=== PATIENT | female | born 1965 | race Caucasian/White ===

== ENCOUNTER → 2016-12-07 | Outpatient (CLI) | payer BC ==
[~2016-12-07] MED LIST: AMT50 PO; CHOL2000 PO; ENOX60IN SQ; GABA-112 PO; GABA-113 PO; MULT-506 PO; WARF10TA4 PO
== END | disposition home or self-care (01) ==
LOC: C.LABPVFM 09:33
PROVIDERS: ATTEND Nurse Practitioner
DX: N39.0 Urinary tract infection, site not specified (principal)

== ENCOUNTER 2016-12-18 10:56 | Day surgery (SDC) | payer BC, OTHER ==
[2016-12-02 14:41] VITALS: BMI 33.0
--- NOTE | 2016-12-02 15:13 | PAT Medication Instructions ---
Service Date Dec 02, 2016. Current Home Medication List Amitriptyline Hcl (Elavil), 50 MG PO HS Cholecalciferol (Vitamin D3), 1 CAP PO HS Gabapentin (Neurontin), 100 MG PO qam/noon Gabapentin (Neurontin), 300 MG PO HS Multivitamin (Multivitamin), 1 TAB PO QAM Warfarin Sod (Jantoven), 10 MG PO QPM Medication Instructions For Your Scheduled Surgery - Check with surgeon/family doctor for instructions: Warfarin Sod (Jantoven), 10 MG PO QPM - Hold the following medications the morning of surgery: Multivitamin (Multivitamin), 1 TAB PO QAM - Take the following medications the morning of surgery with a sip of water: Gabapentin (Neurontin), 100 MG PO qam/noon - Take the following medications as scheduled the night before surgery: Gabapentin (Neurontin), 300 MG PO HS Cholecalciferol (Vitamin D3), 1 CAP PO HS Amitriptyline Hcl (Elavil), 50 MG PO HS If you have any questions please call us at [phone] (Sara Arrington PA-C) or [phone] or [phone]
[2016-12-02 16:10] LABS: BASO % 0.5 %; BASO ABS # 0.03 K/uL (0-0.2); COMPLETE YES; HEMATOCRIT 42.2 % (37-47); IG% 0.2 %; LYMPH % 34.4 %; LYMPH ABS # 2.29 K/uL (1.2-3.4); MEAN CELL VOLUME 90.2 fL (80-100); MEAN CORPUSCULAR HEMOGLOBIN 31.4 pg (25-34); MEAN CORPUSCULAR HGB CONC 34.8 g/dl (32-36); MONO % 8.9 %; PLATELET COUNT 203 K/uL (130-400); RED BLOOD COUNT 4.68 M/uL (4.2-5.4); WHITE BLOOD COUNT 6.66 K/uL (4.8-10.8)
[2016-12-02 16:23] LABS: INR 3.1 (0.9-1.1); PARTIAL THROMBOPLASTIN RATIO 1.5; PROTHROMBIN TIME (PATIENT) 34.2 SECONDS (9.0-12.0)
[2016-12-02 16:31] LABS: URINE APPEARANCE CLOUDY (CLEAR); URINE BILIRUBIN NEG (NEG); URINE COLOR YELLOW; URINE EPITHELIAL CELL AUTO >30 /lpf (0-5); URINE NITRITE POS (NEG); URINE SPECIFIC GRAVITY 1.015 (1.000-1.030); UROBILINOGEN NEG (NEG)
[2016-12-02 16:31] LABS: BUN/CREATININE RATIO 20.4 (10-20); CALCIUM 10.1 mg/dl (8.5-10.1); CREATININE 0.75 mg/dl (0.60-1.20)
[2016-12-02 16:44] LABS: MANUAL MICROSCOPIC REQUIRED? NO; REVIEW REQ? NO
--- NOTE | 2016-12-08 13:26 | HISTORY & PHYSICAL EXAMINATION ---
DATE OF ADMISSION: 12/18/2016 CHIEF COMPLAINT: Right knee pain. HISTORY OF PRESENT ILLNESS: This is a patient who had an injury to her right knee. She had been treated conservatively; however, she has failed conservative management. She had an MRI done of the right knee which noted a medial meniscus tear as well as a Loera's cyst. She is now being set up for surgical treatment. PAST MEDICAL HISTORY: History of DVT, factor V Leiden mutation, history of pulmonary embolism, ovarian cyst and history of increased fasting glucose. SOCIAL HISTORY: The patient is a smoker. She has an occasional alcoholic drink and she is . PAST SURGICAL HISTORY: History of an ankle surgery, back surgery, cholecystectomy, colposcopy of the cervix with biopsy, history of knee arthroscopy, renal lithotripsy and tonsillectomy. FAMILY HISTORY: Noncontributory. CURRENT MEDICATIONS: Gabapentin 100 mg 1 p.o. at lunchtime and 3 capsules p.o. at bedtime, Coumadin 5 mg as directed, amitriptyline 50 mg 1 p.o. at bedtime, Flonase 50 mcg 1 spray in each nostril b.i.d., multivitamin 1 p.o. daily, vitamin D3 2000 units 1 p.o. daily. ALLERGIES: No known drug allergies. OBJECTIVE PHYSICAL EXAMINATION: GENERAL: The patient is alert and oriented x3. She is in no acute distress. She is a well-dressed, well-nourished 51-year-old female. Her affect is appropriate. CARDIOVASCULAR: Heart has a regular rhythm and rate without murmurs. LUNGS: Clear to auscultation bilateral. Dorsalis pedis, posterior tib pulse +2/4. Cap refill is less than 2 seconds. LYMPHATIC EXAMINATION: No evidence of any swollen lymph nodes. MUSCULOSKELETAL EXAMINATION: The patient has an antalgic gait favoring the right lower extremity. Upon inspection of the right lower extremity, she has swelling of the right knee. There is a mild to moderate effusion noted. With palpation, she has tenderness at the medial joint space as well as over the patella. She has a positive Blaire's test. There is crepitation with passive and active range of motion. There is no laxity with varus or valgus stress or anterior posterior drawer of the right knee. SKIN EXAMINATION: There are no scars, rashes or ulcers noted. NEUROLOGIC EXAMINATION: Sensation normal and intact distally right lower extremity. X-RAY EXAMINATION: MRI of the right knee demonstrates posterior horn medial meniscus tear. There is also a large knee effusion and a small Loera's cyst. 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 ASSESSMENT AND DIAGNOSES: 1. Right knee medial meniscus tear. 2. Loera's cyst right knee. 3. Right knee osteoarthritis. PLAN: Above assessment was discussed with the patient. At this time it was recommended the patient undergo a right knee arthroscopy with partial medial meniscectomy, possible chondroplasty medial femoral condyle and also aspiration Loera's cyst. All potential risks, benefits, complications, alternatives and rehab have been discussed with the patient. At this time, she wishes to proceed with the surgery as indicated. She will be scheduled for the surgery on 12/18/2016.
[~2016-12-18] VITALS: Ht 172.7 cm; Wt 100.2 kg
[~2016-12-18 10:56] MED LIST changes: +ATROPINE SULFATE 0.1 MG/ML 5ML SYR IV PRN; +CEFAZOLIN 2000 MG/60 ML D5W IV SCH; -ENOX60IN SQ; +EpHEDrine SULFATE INJ 50 MG/ML AMP IV PRN; +FENTANYL CITRATE INJ 50 MCG/1 ML 2 ML VIAL IV PRN; +HYDROmorphone INJ 1 MG/ML SYR IV PRN; +LABETALOL HCL IV 5 MG/ML 20ML IV PRN; +LACTATED RINGER'S 1000ML 1,000 ML IV SCH; +MEPERIDINE HCL 25 MG/ML CARP IV PRN; +ONDANSETRON INJ 2 MG/ML 2 ML VIAL IV PRN
--- NOTE | 2016-12-18 11:21 | History & Physical Bridge Note ---
H&P Re-Evaluation Bridge Note: I have examined the patient, reviewed the History & Physical and in the interval since the performance of the History & Physical I have noted the following changes of clinical significance: No changes noted
[2016-12-18] MEDS ORDERED: ENOX60IN SQ (11:29)
[2016-12-18 11:36] VITALS: BP 139/87; PULSE 63; TEMP 36.7; O2SAT 98; Ht 172.7 cm; Wt 100.2 kg
[2016-12-18 12:13] LABS: INR 0.9 (0.9-1.1); PROTHROMBIN TIME (PATIENT) 10.1 SECONDS (9.0-12.0)
[2016-12-18] MEDS ORDERED: LIDOCAINE HCL 2% 2 ML VIAL (20MG/ML) ONE ×2 (12:17→13:54)
[2016-12-18] MEDS ORDERED: DEXAMETHASONE SOD INJ 4 MG/ML VIAL ONE ×2 (12:17→13:54)
[2016-12-18] MEDS ORDERED: FENTANYL CITRATE INJ 50 MCG/1 ML 2 ML VIAL ONE ×6 (12:18→15:35)
[2016-12-18] MEDS ORDERED: ONDANSETRON INJ 2 MG/ML 2 ML VIAL ONE ×2 (12:18→13:54)
[2016-12-18] MEDS ORDERED: MIDAZOLAM HCL 1 MG/ML 2ML VIAL ONE ×2 (12:18→13:54)
[2016-12-18] MEDS ORDERED: PROPOFOL IV EMULSION 10 MG/ML 20 ML VIAL IV ONE ×2 (12:18→13:54)
[2016-12-18] MEDS ORDERED: BUPIVACAINE/EPINEPHRINE 0.5% MPF 1:200,000 30 ML VIAL ONE (14:12)
[2016-12-18] MEDS ORDERED: KETOROLAC TROMETHAMINE 30 MG/ML VIAL ONE (15:11)
--- NOTE | 2016-12-18 15:28 | [facility] Post Operative Brief Note ---
Immediate Operative Summary Operative Date Dec 18, 2016. Pre-Operative Diagnosis Right knee medial meniscus tear, lateral meniscus tear, DJD medial femoral condyle, Loera's cyst right knee. Right knee osteoarthritis Post-Operative Diagnosis Right knee medial meniscus tear, lateral meniscus tear, DJD medial femoral condyle grade 3, DJD patellofemoral joint grade 2-3, synovitis, Loera's cyst right knee. Right knee osteoarthritis Procedure(s) Performed Right knee scope with parthial medial menisectomy, partial lateral menisectomy, abrasion chondroplasty medial femoral condyle, chondroplasty femoral trochles, chondroplasty patella, synovectomy, Aspiration Loera's cyst Surgeon Dr. Brennon Goznalez Returner Surgeon(s) none Estimated Blood Loss 2cc Findings See dict Specimens none Drains None Anesthesia GLMA w/ local Complication(s) None Disposition Recovery Room / PACU
--- NOTE | 2016-12-18 15:32 | Discharge Instructions ---
Discharge Instructions Date of Service Dec 18, 2016. Admission Reason for Admission: Right Knee Medial Meniscal Tear, Bakers Cyst Discharge Discharge Diagnosis / Problem: Right Knee Medial Meniscal Tear, Bakers Cyst Discharge Goals Goal(s): Decrease discomfort, Improve function Activity Recommendations Activity Limitations: per Instructions/Follow-up section Weightbearing Status: Right weightbearing (as tolerated) . Instructions / Follow-Up Instructions / Follow-Up ACTIVITY RECOMMENDATIONS: * You may walk on the leg with or without crutches as comfort permits. * Bending of the knee should start at once. * Do not shower for 72 hours following surgery. SPECIAL CARE INSTRUCTIONS: * You may cleanse the skin adjacent to the small wounds with soap and water at the time of the first dressing change. * The application of an ice bag to the front and sides of the knee will decrease swelling and discomfort for the first 48 hours. * The small incisions may be sore and develop bruising. This bruising does not require any special care. SPECIAL PRECAUTIONS: * If you experience unusual pain unrelieved by prescriptions, temperature elevation (100 degrees F. or above) or progressive swelling or bleeding, you should contact our office at for further evaluation. * You may have been prescribed pain medication. If you experience nausea and/or fine skin rash, discontinue this medication and contact our office at for an alternate medication. DRESSING: * Dressing should be comfortable and absorb any leakage of fluid and/or blood. * The dressing may become moist or bloodstained. * Dressing may be removed 3 days after surgery and bandaids placed over the small surgical incisions. If can be removed sooner if it becomes very soiled or loose. * Bandaids may be used over next several days as needed and can be discontinued when there is not further drainage from the wounds. FOLLOW UP VISIT: If appointment is not already scheduled: Please call [facility] [place] to make a follow-up appointment for your surgery at . Current Hospital Diet Patient's current hospital diet: Discharge Diet Recommended Diet: Regular Diet Procedures Procedures Performed: Right knee scope with parthial medial menisectomy, partial lateral menisectomy, abrasion chondroplasty medial femoral condyle, chondroplasty femoral trochles, chondroplasty patella, synovectomy, Aspiration Loera's cyst Pending Studies Studies pending at discharge: no Medical Emergencies . Who to Call and When: Medical Emergencies: If at any time you feel your situation is an emergency, please call 911 immediately. . Non-Emergent Contact Non-Emergency issues call your: Surgeon Call Non-Emergent contact if: temperature is above 101, your pain is not controlled, wound has increased redness . "Provider Documentation" section prepared by Brennon Gonzalez. VTE Core Measure Inpt VTE Proph given/why not?: Enoxaparin (Lovenox)SQ, Warfarin (Coumadin)
--- NOTE | 2016-12-18 16:05 | Anesthesiology Progress Note ---
Anesthesia Post Op Note Date & Time Dec 18, 2016 at 16:05 Vital Signs Pain Intensity: 3 Vital Signs Past 12 Hours Date Time Temp Pulse Resp B/P Pulse Ox O2 Delivery O2 Flow Rate FiO2 12/18/16 16:00 60 16 147/87 91 Room Air 12/18/16 15:50 59 16 142/93 96 Room Air 12/18/16 15:40 54 16 168/89 100 Mask 8 12/18/16 15:33 36.1 63 16 169/93 100 Mask 8 12/18/16 11:36 36.7 63 18 139/87 98 Room Air Notes Mental Status: alert / awake / arousable, participated in evaluation Pt Amnestic to Procedure: Yes Nausea / Vomiting: adequately controlled Pain: adequately controlled Airway Patency, RR, SpO2: stable & adequate BP & HR: stable & adequate Hydration State: stable & adequate Anesthetic Complications: no major complications apparent
[2016-12-18 16:20] VITALS: BP 136/86; PULSE 60; TEMP 36.7; O2SAT 97
[2016-12-18 16:50] VITALS: BP 135/77; PULSE 64; TEMP 36.4; O2SAT 94
[2016-12-18 17:20] VITALS: BP 135/77; PULSE 64; TEMP 36.7; O2SAT 99
--- NOTE | 2016-12-18 20:51 | OPERATIVE REPORT ---
DATE OF OPERATION: 12/18/2016 PREOPERATIVE DIAGNOSES: Right knee medial meniscus tear, lateral meniscus tear, degenerative joint disease, medial femoral condyle and Loera's cyst. POSTOPERATIVE DIAGNOSES: 1. Right knee medial meniscus tear. 2. Lateral meniscus tear. 3. Degenerative joint disease grade 3 of the medial femoral condyle. 4. 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 5. Synovitis of the knee. 6. Loera's cyst. PROCEDURES: 1. Right knee arthroscopy with partial medial meniscectomy. 2. Partial lateral meniscectomy 3. Abrasion chondroplasty to bleeding bone of the medial femoral condyle. 4. Chondroplasty femoral trochlea. 5. Chondroplasty patella. 6. Synovectomy of the knee. 7. Aspiration Loera cyst. SURGEON: Dr. Gonzalez. SMOOTH STUCCO RESURFACER: None. ANESTHESIA: General LMA with local. SPECIMENS: None. DRAINS: None. COMPLICATIONS: None. BLOOD LOSS: 4 mL. PERTINENT HISTORY: This is a 51-year-old female with right knee pain after she sustained a twisting injury to the knee. She attempted conservative management and observation for several weeks. She then began to use anti-inflammatories, tried to rest the knee, used a brace and a knee sleeve, changed her shoe wear, continued to have discomfort, attempted home exercises with ice and elevation. She was then seen in clinic, had radiographs and an MRI which demonstrated a medial and lateral meniscal tears with degenerative changes of the medial femoral condyle and a Loera's cyst. The patient was then scheduled for surgery as indicated. All potential risks, benefits, complications, alternatives, rehab, potential for incomplete relief of symptoms, need for further surgery, DVT, PE, , persistent pain, swelling, scarring, weakness, neurovascular, wound complications, and persistent stiffness were discussed with the patient. The patient decided to proceed with the procedure as indicated. DESCRIPTION OF PROCEDURE: The patient was taken to the operative suite, placed supine on the operating room table. After review of consent and identification of proper operative site, the patient was anesthetized, LMA was placed. Tourniquet was placed high on the right thigh over cast padding. Right lower extremity was then sterilely prepped and draped in usual fashion, elevated, and exsanguinated with an Esmarch bandage, tourniquet inflated to 300 mmHg. Next, an 11 blade scalpel incision was made inferior lateral aspect of the knee, followed by placement of blunt trocar and sleeve, camera and inflow, which was then followed by creation of a superomedial portal with an 11 blade scalpel incision and outflow cannula. Next, the sequential diagnostic arthroscopy commenced in the suprapatellar pouch noting synovitis. There was also noted to be damage patellofemoral articulation with chondromalacia grade 2-3 of the patella and to the femoral trochlea with fibrillation. Next, the medial gutter was inspected and noted to have some moderate synovitis, no loose bodies. Next, the medial joint space was inspected and noted to have a complex tear of the posterior horn and body of the medial meniscus. There was also noted to be grade 3 degenerative changes of the medial femoral condyle with fissuring, fibrillation and flap tears of the cartilage. There was some softening of the medial tibial plateau. Next, an 18 gauge spinal needle was used to localize for the portal placement followed by an 11-blade scalpel incision followed by placement of a basket biter, which was used to resect the damaged portion of the meniscus. Next, a 4.5 mm sucker shaver was then placed into the joint and this was used to smooth and contour the remainder of the stable medial meniscus and then an abrasion chondroplasty to bleeding bone was performed on the medial femoral condyle using a 4.5 mm sucker shaver. After this was completed, all particulate debris was flushed from the joint and then attention was then directed towards the ACL and PCL. ACL and PCL noted to be intact. Probe was inserted. The probe noted to be stable and intact. Next, the lateral joint space was inspected and noted to have a tear of the white-white zone of the lateral meniscus with fibrillation and flaps. Partial lateral meniscectomy was then performed with a 4.5 mm sucker shaver. After this was completed, attention was then directed toward the lateral gutter, no loose bodies; however, there was noted to be synovitis. Synovectomy was performed in the lateral gutter. Next, attention was then directed toward the suprapatellar pouch and a synovectomy was performed of the suprapatellar pouch and the medial gutter. Next, the 4.5 mm sucker shaver was then used to perform a chondroplasty of the patella and the femoral trochlea. All particulate debris was then flushed from the joint and the joint was then lavaged. Next, the instruments were then removed from the portal sites. All excess fluid was expressed from the knee joint. All portal sites were then closed using interrupted 4-0 nylon suture and attention was then directed toward the Loera cyst. Next, an 18 gauge spinal needle on 60 mL syringe was then used to aspirate approximately 2 mL of cyst fluid from a small posterior Loera's cyst at the level of the knee flexion crease. After this was aspirated, a sterile compressive dressing was then applied to the right knee consisting of Xeroform gauze, sterile 4 x 4s, ABD pads, cast padding and an Jay wrap. The tourniquet was then released. The patient was awakened and taken to recovery in stable condition. I attest to the content of the Intraoperative Record and any orders documented therein. Any exceptio ns are noted below.
== END 2016-12-18 17:30 | disposition home or self-care (01) ==
LOC: C.ACU 10:56
PROVIDERS: ATTEND Orthopaedic Surgery Sports Medicine
DX: S83.201A Bucket-handle tear of unspecified meniscus, current injury, left knee, initial encounter (principal); S83.281A Other tear of lateral meniscus, current injury, right knee, initial encounter; M94.261 Chondromalacia, right knee; M65.9 Synovitis and tenosynovitis, unspecified; M71.21 Synovial cyst of popliteal space [Baker], right knee; I82.409 Acute embolism and thrombosis of unspecified deep veins of unspecified lower extremity; D68.51 Activated protein C resistance; Z86.711 Personal history of pulmonary embolism; Y93.01 Activity, walking, marching and hiking; Y92.89 Other specified places as the place of occurrence of the external cause; Y99.8 Other external cause status

== ENCOUNTER → 2017-02-23 | Outpatient (CLI) | payer BC ==
[~2017-02-23] MED LIST changes: +AMIT75TA2 PO; -ATROPINE SULFATE 0.1 MG/ML 5ML SYR IV PRN; -CEFAZOLIN 2000 MG/60 ML D5W IV SCH; +CYCL10TA6 PO; +ENOX60IN SQ; -EpHEDrine SULFATE INJ 50 MG/ML AMP IV PRN; -FENTANYL CITRATE INJ 50 MCG/1 ML 2 ML VIAL IV PRN; -HYDROmorphone INJ 1 MG/ML SYR IV PRN; -LABETALOL HCL IV 5 MG/ML 20ML IV PRN; -LACTATED RINGER'S 1000ML 1,000 ML IV SCH; -MEPERIDINE HCL 25 MG/ML CARP IV PRN; +METH4PAK PO; -ONDANSETRON INJ 2 MG/ML 2 ML VIAL IV PRN; +OXYC1TAB3 PO
[2017-02-23 13:12] LABS: BLOOD UREA NITROGEN 13 mg/dl (7-18); BUN/CREATININE RATIO 18.8 (10-20); CALCIUM 9.1 mg/dl (8.5-10.1); CARBON DIOXIDE 28 mmol/L (21-32); CHLORIDE 106 mmol/L (98-107); CREATININE 0.68 mg/dl (0.60-1.20); GLUCOSE 135 mg/dl (70-99); POTASSIUM 3.9 mmol/L (3.5-5.1); SODIUM 140 mmol/L (136-145)
[2017-02-23 13:15] LABS: CHOLESTEROL 142 mg/dl (0-200); CHOLESTEROL/HDL RATIO 2.4; HDL CHOLESTEROL 60 mg/dl; LDL CHOLESTEROL CALCULATED 72 mg/dl; TRIGLYCERIDES 52 mg/dl (0-150); VERY LOW DENSITY LIPOPROT CALC 10 mg/dl
[2017-02-23 13:26] LABS: ESTIMATED AVERAGE GLUCOSE 134 mg/dl; HA1C FLAG Normal (Normal)
== END | disposition home or self-care (01) ==
LOC: C.LABPVFM 08:03
PROVIDERS: ATTEND Nurse Practitioner
DX: R73.01 Impaired fasting glucose (principal); D68.51 Activated protein C resistance; Z79.01 Long term (current) use of anticoagulants

== ENCOUNTER → 2017-08-04 | Outpatient (CLI) | payer BC ==
[~2017-08-04] MED LIST changes: -AMT50 PO; -ENOX60IN SQ
--- NOTE | 2017-08-04 09:06 | DIAGNOSTIC IMAGING REPORT ---
LUMBAR SPINE MIN 4 VIEWS HISTORY: Pain LOW BACK PAIN COMPARISON: 03/01/2015 FINDINGS: There is no fracture. No subluxation. Stable degenerative disc change L4-L5 and L5-S1. No evidence for compression deformity. Stable nephrocalcinosis. IMPRESSION: Degenerative changes primarily of the lower lumbar spine. No acute process. No change from the prior exam. The above report was generated using voice recognition software. It may contain grammatical, syntax or spelling errors. Electronically signed by: Job Crain M.D. 08/04/2017 9:04 AM Dictated Date/Time: 08/04/2017 9:03 AM
== END | disposition home or self-care (01) ==
LOC: C.RDSM 10:46
PROVIDERS: ATTEND Internal Medicine
DX: M54.5 Low back pain (principal)

== ENCOUNTER 2022-11-07 23:54 | Observation (INO) ==
--- NOTE | 2022-11-08 00:14 | Emergency Department Note ---
History of Present Illness General Chief complaint: Chest Pain Stated complaint: CHEST PAIN Time Seen by Provider: 11/07/22 23:55 History of Present Illness This 57-year-old female that smokes on Coumadin for history of PEs presents to the ER complaining of chest pain today. Patient states nothing makes it better or worse. It does not radiate. She is not sure if this feels similar to her prior PEs. Patient denies abdominal pain, fevers, dyspnea, leg pain or swelling. No prior heart attack. Home Medications Medication Instructions Recorded Confirmed Type cholecalciferol (vitamin D3) 25 1,000 unit PO HS 12/19/18 11/08/22 History mcg (1,000 unit) capsule (Vitamin D3) multivitamin 1 tab PO HS 12/19/18 11/08/22 History metformin 500 mg tablet 500 mg PO BID #60 tabs 12/26/21 11/08/22 Rx amitriptyline 75 mg tablet 75 mg PO HS #90 tabs 06/23/22 11/08/22 Rx warfarin 5 mg tablet 10 mg PO HS #180 tabs 09/29/22 11/08/22 Rx nitrofurantoin 100 mg PO Q12H 7 days #14 caps 11/03/22 11/08/22 Rx monohydrate/macrocrystals 100 mg capsule (Macrobid) tamsulosin 0.4 mg capsule (Flomax) 0.4 mg PO HS 11/08/22 11/08/22 History Allergies Allergy/AdvReac Type Severity Reaction Status Date / Time ciprofloxacin [From Cipro] AdvReac Unknown CONTRAINDICATED Verified 11/08/22 00:28 WITH BLOOD THINNERS Past Med/Surg History Medical History Adnexal cyst Arthralgia Chronic pain of lower extremity Current smoker DVT (deep venous thrombosis) Hx of deep venous thrombosis Hx pulmonary embolism Pneumonia due to COVID-19 virus Post-COVID chronic cough Pyelonephritis Surgical History History of ankle surgery History of arthroscopy of knee History of back surgery History of cholecystectomy History of lithotripsy History of neck surgery History of oral surgery History of tonsillectomy Family History Mother Myocardial infarction Brother Myocardial infarction Father Prostate cancer Denies family history of Ovarian cancer Breast cancer Colorectal cancer Social History Smoking Status: Current every day smoker Tobacco Type: Cigarettes Age Started Using Tobacco: 12; packs per day: 1; Cigarettes Per Day: 20; Second Hand Exposure: No; Hx Alcohol Use: Yes Alcohol type: beer Hx Substance Use: No Preferred Language: [place] Visual Impairment: No Limitations Hearing Ability: Normal marital status: Current Living Situation: Spouse current occupational status: employed current occupation: [employer] Feels Safe at Home: Yes caffeine: Yes Dental Care, Regularly: Yes Physical Activity Frequency: Daily Seatbelt Use: sometimes Sunscreen Use: No Review of Systems A total of 10 systems reviewed and were otherwise negative Physical Exam Vital Signs Vital Signs - 24 hr 11/08/22 00:02 11/08/22 00:02 11/08/22 00:09 Temperature 36.4 C L Temperature Source Temporal Artery Scan Pulse Rate 96 H Pulse Rate from SpO2 Sensor Respiratory Rate 18 Respiratory Effort / Characteristics Non-Labored Spontaneous Respiratory Depth Normal Blood Pressure 215/116 H Blood Pressure Mean 149 Pulse Oximetry 100 97 Oxygen Delivery Method Room Air Room Air Room Air Sepsis Recent Fever Within 48 Hours No Sepsis New/Unexplained Change in Mental Status No Sepsis Action Taken by Nursing No Action Required 11/08/22 00:08 11/08/22 00:11 11/08/22 00:20 Temperature Temperature Source Pulse Rate 86 81 Pulse Rate from SpO2 Sensor 86 81 Respiratory Rate 18 17 Respiratory Effort / Characteristics Respiratory Depth Blood Pressure Blood Pressure Mean Pulse Oximetry 98 98 96 Oxygen Delivery Method Room Air Sepsis Recent Fever Within 48 Hours Sepsis New/Unexplained Change in Mental Status Sepsis Action Taken by Nursing 11/08/22 00:30 11/08/22 00:40 11/08/22 00:50 Temperature Temperature Source Pulse Rate 80 74 72 Pulse Rate from SpO2 Sensor 81 74 72 Respiratory Rate 24 9 L 0 L Respiratory Effort / Characteristics Respiratory Depth Blood Pressure Blood Pressure Mean Pulse Oximetry 95 95 95 Oxygen Delivery Method Sepsis Recent Fever Within 48 Hours Sepsis New/Unexplained Change in Mental Status Sepsis Action Taken by Nursing 11/08/22 01:06 11/08/22 01:10 11/08/22 01:20 Temperature Temperature Source Pulse Rate 75 66 68 Pulse Rate from SpO2 Sensor 73 66 68 Respiratory Rate 22 23 20 Respiratory Effort / Characteristics Respiratory Depth Blood Pressure Blood Pressure Mean Pulse Oximetry 95 97 96 Oxygen Delivery Method Sepsis Recent Fever Within 48 Hours Sepsis New/Unexplained Change in Mental Status Sepsis Action Taken by Nursing 11/08/22 01:30 11/08/22 01:40 11/08/22 01:40 Temperature Temperature Source Pulse Rate 68 76 Pulse Rate from SpO2 Sensor 68 76 Respiratory Rate Respiratory Effort / Characteristics Respiratory Depth Blood Pressure 179/104 H Blood Pressure Mean 129 Pulse Oximetry 96 96 Oxygen Delivery Method Sepsis Recent Fever Within 48 Hours Sepsis New/Unexplained Change in Mental Status Sepsis Action Taken by Nursing VITALS: Vitals are noted on the nurse's note and reviewed by myself. Vital signs hypertensive. GENERAL: Pleasant female, in no acute distress, nondiaphoretic, well-developed well-nourished. SKIN: The skin was without rashes, erythema, edema, or bruising. There is no tenting of the skin. Capillary reflex less than 2 seconds. HEAD: Normocephalic atraumatic. EARS: External auditory canals clear, EYES: Pupils equal round and reactive to light and accommodation. Conjunctivae without injection, sclerae without icterus. Extraocular movements intact. NOSE: Patent, turbinates without inflammation or discharge. MOUTH: Mucous membranes moist. Pharynx without erythema or exudate. Uvula midline. Airway patent. Tongue does not deviate. NECK: Supple without nuchal rigidity. No lymphadenopathy. No thyromegaly. Cervical spine is nontender. No JVD. HEART: Regular rate and rhythm LUNGS: Clear to auscultation bilaterally without wheezes, rales or rhonchi. No retractions or accessory muscle use. ABDOMEN: Positive bowel sounds x 4. Normal tympanic percussion. Soft, nontender, without masses or organomegaly. Bustos sign negative. No guarding or rebound tenderness. No CVA tenderness MUSCULOSKELETAL: No muscle atrophy, erythema, or edema noted. NEURO: Patient was alert and oriented to person place and time. Normal sensation to light and sharp touch. No focal neurological deficits. Course Administered Medications Magnesium Sulfate/Dextrose (Magnesium Sulfate / D5w) 1 gm in 100 mls @ 100 mls/hr IV Q1H ANTHONY Stop: 11/08/22 02:52 Last Admin: 11/08/22 02:37 Dose: 100 mls/hr Documented By: Infusion: 11/08/22 02:34 Dose: 100 mls/hr Documented By: Admin: 11/08/22 01:34 Dose: 100 mls/hr Documented By: GISELLE Discontinued Medications Aspirin (Aspirin Chew 324 Mg) 324 mg PO NOW STA Stop: 11/08/22 01:38 Last Admin: 11/08/22 01:49 Dose: 324 mg Documented By: HARRISON Sodium Chloride (Nss 1000ml) 1,000 mls @ 999 mls/hr IV .Q1H1M ONE Stop: 11/08/22 01:53 Last Admin: 11/08/22 01:34 Dose: 999 mls/hr Documented By: GISELLE Ioversol (Optiray 320 500ml) 114 ml IV ONCE ONE Stop: 11/08/22 01:07 Last Admin: 11/08/22 01:06 Dose: 114 ml Documented By: JOSE CARLOS Nitroglycerin (Nitroglycerin Sl 0.4 Mg/Tab Tab) 0.4 mg SL NOW STA Stop: 11/08/22 01:38 Last Admin: 11/08/22 01:50 Dose: 0.4 mg Documented By: HARRISON Medical Decision Making Medical Records Attestation: I reviewed the patient's medical records. Home Medications Current Medication List: was personally reviewed by me Laboratory Data Attestation: I reviewed the patient's lab results. 11/08/22 00:10 11/08/22 00:10 Lab Results 11/08/22 11/08/22 11/08/22 Range/Units 00:10 00:10 00:10 WBC 8.16 (4.8-10.8) K/ul RBC 4.38 (4.20-5.40) M/uL Hgb 13.4 (12.0-16.0) g/dl Hct 39.0 (37.0-47.0) % MCV 89.0 (80.0-100.0) fL MCH 30.6 (25.0-34.0) pg MCHC 34.4 (32.0-36.0) g/dL RDW Std Deviation 45.4 (36.4-46.3) fL RDW Coeff of Naveen 13.9 (11.5-14.5) % Plt Count 240 (130-400) K/uL MPV 9.8 (9.4-12.4) fL Immature Gran % (Auto) 0.4 % Neut % (Auto) 53.0 % Lymph % (Auto) 33.3 % [place] % (Auto) 9.8 % Eos % (Auto) 2.8 % Baso % (Auto) 0.7 % Neut # (Auto) 4.32 (1.40-6.50) K/uL Lymph # (Auto) 2.72 (1.2-3.4) K/uL [place] # (Auto) 0.80 H (0.11-0.59) K/uL Eos # (Auto) 0.23 (0-0.50) K/uL Baso # (Auto) 0.06 (0-0.2) K/uL Immature Gran # (Auto) 0.03 (0.01-0.20) K/uL PT 17.6 H (9.0-12.0) Seconds INR 1.7 H (0.9-1.1) APTT 33.9 H (21.0-31.0) Seconds PTT Ratio 1.2 Sodium 140 (136-145) mmol/L Potassium 3.7 (3.5-5.1) mmol/L Chloride 105 (98-107) mmol/L Carbon Dioxide 30 (21-32) mmol/L Anion Gap 5 (3-11) BUN 19 (6-23) mg/dl Creatinine 0.73 (0.6-1.2) mg/dl Est Cr Clr Drug Dosing Not Reportable Est GFR ( Amer) 105.2 ml/min Est GFR (Non-Af Amer) 90.8 ml/min BUN/Creatinine Ratio 26.0 H (10-20) Glucose 104 H (70-99(Fasting)) mg/dl Calcium 9.9 (8.5-10.1) mg/dl Magnesium 1.6 L (1.7-2.4) mg/dl Total Bilirubin 0.3 (0.2-1.0) mg/dl AST 12 L (13-39) U/L ALT 12 (7-52) U/L Alkaline Phosphatase 64 (34-104) U/L Troponin I High Sens 3.4 (0-14) pg/ml Total Protein 7.5 (6.0-8.3) gm/dl Albumin 3.6 (3.4-5.0) gm/dl Globulin 3.9 (2.5-4.0) gm/dl Albumin/Globulin Ratio 0.9 (0.9-2) Lipase 36 (11-82) U/L SARS-CoV-2, RNA, NAAT (NEGATIVE) 11/08/22 Range/Units 00:10 WBC (4.8-10.8) K/ul RBC (4.20-5.40) M/uL Hgb (12.0-16.0) g/dl Hct (37.0-47.0) % MCV (80.0-100.0) fL MCH (25.0-34.0) pg MCHC (32.0-36.0) g/dL RDW Std Deviation (36.4-46.3) fL RDW Coeff of Naveen (11.5-14.5) % Plt Count (130-400) K/uL MPV (9.4-12.4) fL Immature Gran % (Auto) % Neut % (Auto) % Lymph % (Auto) % [place] % (Auto) % Eos % (Auto) % Baso % (Auto) % Neut # (Auto) (1.40-6.50) K/uL Lymph # (Auto) (1.2-3.4) K/uL [place] # (Auto) (0.11-0.59) K/uL Eos # (Auto) (0-0.50) K/uL Baso # (Auto) (0-0.2) K/uL Immature Gran # (Auto) (0.01-0.20) K/uL PT (9.0-12.0) Seconds INR (0.9-1.1) APTT (21.0-31.0) Seconds PTT Ratio Sodium (136-145) mmol/L Potassium (3.5-5.1) mmol/L Chloride (98-107) mmol/L Carbon Dioxide (21-32) mmol/L Anion Gap (3-11) BUN (6-23) mg/dl Creatinine (0.6-1.2) mg/dl Est Cr Clr Drug Dosing Est GFR ( Amer) ml/min Est GFR (Non-Af Amer) ml/min BUN/Creatinine Ratio (10-20) Glucose (70-99(Fasting)) mg/dl Calcium (8.5-10.1) mg/dl Magnesium (1.7-2.4) mg/dl Total Bilirubin (0.2-1.0) mg/dl AST (13-39) U/L ALT (7-52) U/L Alkaline Phosphatase (34-104) U/L Troponin I High Sens (0-14) pg/ml Total Protein (6.0-8.3) gm/dl Albumin (3.4-5.0) gm/dl Globulin (2.5-4.0) gm/dl Albumin/Globulin Ratio (0.9-2) Lipase (11-82) U/L SARS-CoV-2, RNA, NAAT NEGATIVE (NEGATIVE) Imaging Data Attestation: I personally reviewed and interpreted this imaging study as follows: MDM Narrative Prior records/ancillary studies reviewed. Triage Nursing notes reviewed. Additional history obtained from nursing. The patient's history was concerning for chest pain. Differential diagnosis: Etiologies such as cardiac ischemia, aortic dissection, pulmonary embolism, pneumonia, pneumothorax, musculoskeletal, infections, pericarditis, myocarditis, esophageal rupture, gastrointestinal, as well as others were entertained. Physical examination: As above. ER treatment provided: An order was placed for continuous cardiac monitoring. The monitor shows a rate of 60-1 50 with a sinus rhythm per my interpretation. asa, nitro On reassessment the patient felt better. Diagnostic interpretation by me: #1 the electrocardiogram was ordered for chest pain and independently interpreted by myself EKG: Poor baseline, normal sinus, T wave depression in the inferior leads, rate of 101, ABG compared to prior EKG. Impression sinus tachycardia with minimal ST depression in the inferior leads interpreted by myself I think arrhythmia is unlikely. EKG shows normal sinus rhythm with no interval abnormalities such as QT prolongation or WPW. There are no findings to suggest Brugada syndrome. Cardiac monitoring in the emergency department reveals no tachycardic or bradycardic dysrhythmia. Hypertrophic cardiomyopathy was considered but there are no clear historical elements pointing toward this. EKG is not suggestive. The QRS voltage is not extremely large and there are no suggestive Q waves. #2 EKG ordered for chest pain EKG: Normal sinus, normal intervals, no acute ST-T wave changes. Impression normal sinus rhythm interpreted by myself I think arrhythmia is unlikely. EKG shows normal sinus rhythm with no interval abnormalities such as QT prolongation or WPW. There are no findings to suggest Brugada syndrome. Cardiac monitoring in the emergency department reveals no tachycardic or bradycardic dysrhythmia. Hypertrophic cardiomyopathy was considered but there are no clear historical elements pointing toward this. EKG is not suggestive. The QRS voltage is not extremely large and there are no suggestive Q waves. The labs Independently Interpreted by myself revealed low magnesium and this was replaced intravenously First troponin negative and repeat was ordered Subtherapeutic INR Negative COVID Imaging studies: CTA CHEST: No pulmonary embolus. No dense consolidation, pleural effusion, or pneumothorax. Additional nonacute findings will be described on the final interpretation. Radiologist: Javy Donnelly MD Chest x-ray with no acute consolidation, pneumothorax or free air per my interpretation HEART SCORE: Hx: high/mod/low suspicion: 1 ECG: ST depression/nonspecific changes/normal: 1 Age: Greater than 65/45-64/less than 45: 1 Risk factors: (Hypertension, hyperlipidemia, diabetes, coronary disease, tobacco use, cocaine use): 2 Troponin: Greater than 2 times normal limits/1-2 times normal limits/normal: 0 Total: 5 Consultation: A consultation was placed with the hospitalist. The case was discussed and diagnostics were reviewed. The patient was evaluated in the ER for further treat ment. Exam and history seem consistent with chest pain with concerns for cardiac in etiology. Labs and diagnostics were independently interpreted by myself. Patient was history of PEs and was sent for advanced imaging. This was reviewed. Serial EKGs were performed. Prior EKG was reviewed. Patient is agreeable treatment plan of admission. Case was discussed with the admitting team. By the evaluation outlined above emergent etiologies such as aortic dissection, pulmonary embolism, pneumonia, pneumothorax, infections, pericarditis, myocarditis, gastrointestinal, as well as others were deemed relatively unlikely. The pt informed about the findings as listed above. All questions were answered and pleased with the treatment. The chart was completed utilizing [employer] voice recognition software. Grammatical errors, random word insertions, pronoun errors, and incomplete sentences are an occassional consequence of this system due to software limitations, ambient noise, and hardware issues. Any formal questions or concerns about the content, text, or information contained within the body of this dictation should be directly addressed to the physician radiology physician assistant for clarification. Impression & Plan Chest pain, Subtherapeutic international normalized ratio (INR), Hypomagnesemia Discharge Plan Visit Data Chief Complaint: Chest Pain Stated Complaint: CHEST PAIN ED Provider: Dominic De La Cruz ED Midlevel Provider: Juliette Donnelly Discharge Problem: Chest pain, Subtherapeutic international normalized ratio (INR), Hypomagnesemia Patient Disposition: Admitted As Inpatient Condition: Good Forms Stand Alone Forms: Art [employer] Click Prescriptions Prescriptions: No Action metformin 500 mg tablet 500 mg PO BID Qty: 60 11RF amitriptyline 75 mg tablet 75 mg PO HS Qty: 90 3RF warfarin 5 mg tablet 10 mg PO HS Qty: 180 3RF Protocol: Dose Management Condition: Wednesday Dose/Route: 10 mg Instruction: 2 x 5 mg tablets Condition: Wednesday Dose/Route: 10 mg Instruction: 2 x 5 mg tablets Condition: Wednesday Dose/Route: 10 mg Instruction: 2 x 5 mg tablets Condition: Wednesday Dose/Route: 10 mg Instruction: 2 x 5 mg tablets Condition: Dose/Route: 10 mg Instruction: 2 x 5 mg tablets Condition: Wednesday Dose/Route: 10 mg Instruction: 2 x 5 mg tablets Condition: Wednesday Dose/Route: 10 mg Instruction: 2 x 5 mg tablets Protocol Text: Adjustment Start Date: Wednesday10/21/22 INR Value: 2.8 INR Date: 10/15/22 Recheck Date: 11/20/22 Rx Instructions: PER ANTICOAG. nitrofurantoin monohyd/m-cryst [Macrobid] 100 mg capsule 100 mg PO Q12H 7 Days Qty: 14 0RF Rx Instructions: must administer with a meal/food multivitamin Tablet 1 tab PO HS cholecalciferol (vitamin D3) [Vitamin D3] 1,000 unit Capsule 1,000 unit PO HS tamsulosin [Flomax] 0.4 mg capsule 0.4 mg PO HS Referrals Referrals: Layne Martell CRNP [Primary Care Provider] - : Chest pain Qualifiers: Chest pain type: unspecified Qualified Code(s): R07.9 - Chest pain, unspecified
[2022-11-08 00:21] LABS: Basophils # (auto) 0.06 K/uL (0-0.2); Basophils % (auto) 0.7 %; Eosinophils # (auto) 0.23 K/uL (0-0.50); Eosinophils % (auto) 2.8 %; Hemoglobin 13.4 g/dl (12.0-16.0); Immature Granulocytes # (auto) 0.03 K/uL (0.01-0.20); Immature Granulocytes % (auto) 0.4 %; Lymphocytes # (auto) 2.72 K/uL (1.2-3.4); Lymphocytes % (auto) 33.3 %; Mean Corpuscular Hemoglobin 30.6 pg (25.0-34.0); Mean Corpuscular Hgb Conc 34.4 g/dL (32.0-36.0); Mean Platelet Volume 9.8 fL (9.4-12.4); Monocytes % (auto) 9.8 %; Neutrophils # (auto) 4.32 K/uL (1.40-6.50); Platelet Count 240 K/uL (130-400); RDW Coefficient of Variation 13.9 % (11.5-14.5); RDW Standard Deviation 45.4 fL (36.4-46.3); Red Blood Count 4.38 M/uL (4.20-5.40); White Blood Count 8.16 K/ul (4.8-10.8)
[2022-11-08 00:44] LABS: Alanine Aminotransferase 12 U/L (7-52); Albumin Globulin Ratio 0.9 (0.9-2); Albumin Level 3.6 gm/dl (3.4-5.0); Alkaline Phosphatase 64 U/L (34-104); Anion Gap 5 (3-11); Aspartate Aminotransferase 12 U/L (13-39); Bilirubin,Total 0.3 mg/dl (0.2-1.0); Blood Urea Nitrogen 19 mg/dl (6-23); Calcium 9.9 mg/dl (8.5-10.1); Carbon Dioxide 30 mmol/L (21-32); Chloride 105 mmol/L (98-107); Est GFR (African American) 105.2 ml/min; Est GFR (Non-African American) 90.8 ml/min; Globulin 3.9 gm/dl (2.5-4.0); Glucose 104 mg/dl (70-99(Fasting)); Lipase 36 U/L (11-82); Magnesium 1.6 mg/dl (1.7-2.4); Potassium 3.7 mmol/L (3.5-5.1); Sodium 140 mmol/L (136-145); Total Protein 7.5 gm/dl (6.0-8.3)
[2022-11-08 00:51] LABS: Troponin I High Sensitivity 3.4 pg/ml (0-14)
[2022-11-08] MEDS ORDERED: SODIUM CHLORIDE 0.9% 1000ML 1,000 ML IV ONE (00:53)
[2022-11-08 01:03] LABS: INR 1.7 (0.9-1.1); Partial Thromboplastin Ratio 1.2; Partial Thromboplastin Time 33.9 Seconds (21.0-31.0); Prothrombin Time 17.6 Seconds (9.0-12.0)
[2022-11-08] MEDS ORDERED: OPTIRAY 320 500ml IV ONE (01:06)
[2022-11-08] MEDS: MAGNESIUM SULFATE / D5W 1 GM/100 ML BAG IV SCH ×2 (01:34→02:37)
[2022-11-08] MEDS ORDERED: ASPIRIN CHEW 324 MG PO STA (01:37)
[2022-11-08] MEDS ORDERED: NITROGLYCERIN SL 0.4 MG/TAB TAB SL STA (01:37)
--- NOTE | 2022-11-08 02:35 | History & Physical Report ---
Date of Service November 08, 2022 Assessment & Plan (1) Chest pain: Plan: 57yo Female with PMH prediabetes, factor V leiden on warfarin, depression, chronic pain here for concern chest pain. -admit to med/tele -CTA chest on stat read no PE, personal read no PE some ephysema noted in b/l apex -1 ekg NSR, [address] abn -normal lipase, CBC, BMP -HEART score 3, low risk -1x normal trop, ordered trop in 2hr and am labs -monitor tele Elevated BP -BP noted on admit 215/116 -received nitroglycerin, aspirin, NSS bolus, Magnesium in ED, BP recheck 159/87 -per patient no one has mentioned HTN to her at PCP office, however BP from PCP visits have systolic 140-160's -there may be an element of her chronic pain involved -consider starting her on losartan 50mg (2) Subtherapeutic international normalized ratio (INR): Plan: -Patient has PMH factor V leiden with previous PE's on warfarin -subtherapeutic INR 1.7 -will give an additional 3mg warfarin now, recheck INR in am -patient to follow up in outpatient regarding INR, weekly warfarin dosing (3) Hypomagnesemia: Plan: -noted 1.6 on admit -repleted in ED, recheck AM (4) Prediabetes: Plan: -patient received IV contrast, hold for now resume in evening (5) Heterozygous factor V Leiden mutation: (6) Arthralgia: History of Present Illness Chief Complaint: Chest Pain Primary Care Provider: JARETT Tamayo 57yo Female with PMH prediabetes, factor V leiden on warfarin, depression, chronic pain here for concern chest pain. Patient states at 5pm today she noticed some discomfort in her left chest, noted point tenderness that lasted for a minute before resolving on its own. She continued to have 2 more episodes of chest pain, felt it was closer to a burning sensation and was different from her previous pulmonary embolisms so came to the ED. She continued to have episodes of chest pain in the ED, and was given nitroglycerin and aspirin. In ED she had 1x normal troponin, 1x NSR ekg and 1x ekg with nonspecific ST abn. Patient states nothing out of the ordinary happened today, is unable to trigger the pain. Patient denies any fever chills nausea vomiting abd pain D/C rashes. Earlier this week she had a UTI with fever nausea that resolved by wednesday treated with abx, she states the abx usage may have interfered with her warfarin. Patient states she does not have HTN, follows PCP regularly has normal BP in office, states BP tends to be higher in hospital. Patient works in senior living maintenance, walks and lifts items for job. She has a 40pk year smoking history, drinks alcohol rarely once every few months. Has extensive FH [place], mom age 50's, 2 brothers ages 30's and 50's. Patient describes regular diet, irregular sleeping patterns wakes frequently for urination given that she drinks a lot of water in evening for history kidney stones. Allergies Allergy/AdvReac Type Severity Reaction Status Date / Time ciprofloxacin [From Cipro] AdvReac Unknown CONTRAINDICATED Verified 11/08/22 00:28 WITH BLOOD THINNERS Home Medications Medication Instructions Recorded Confirmed Type cholecalciferol (vitamin D3) 25 1,000 unit PO HS 12/19/18 11/08/22 History mcg (1,000 unit) capsule (Vitamin D3) multivitamin 1 tab PO HS 12/19/18 11/08/22 History metformin 500 mg tablet 500 mg PO BID #60 tabs 12/26/21 11/08/22 Rx amitriptyline 75 mg tablet 75 mg PO HS #90 tabs 06/23/22 11/08/22 Rx warfarin 5 mg tablet 10 mg PO HS #180 tabs 09/29/22 11/08/22 Rx nitrofurantoin 100 mg PO Q12H 7 days #14 caps 11/03/22 11/08/22 Rx monohydrate/macrocrystals 100 mg capsule (Macrobid) tamsulosin 0.4 mg capsule (Flomax) 0.4 mg PO HS 11/08/22 11/08/22 History Past Med/Surg History Medical History Adnexal cyst Arthralgia Chronic pain of lower extremity Current smoker DVT (deep venous thrombosis) Hx of deep venous thrombosis Hx pulmonary embolism Pneumonia due to COVID-19 virus Post-COVID chronic cough Pyelonephritis Surgical History History of ankle surgery History of arthroscopy of knee History of back surgery History of cholecystectomy History of lithotripsy History of neck surgery History of oral surgery History of tonsillectomy Family History Mother Myocardial infarction Brother Myocardial infarction Father Prostate cancer Denies family history of Ovarian cancer Breast cancer Colorectal cancer Social History Smoking Status: Current every day smoker Tobacco Type: Cigarettes Age Started Using Tobacco: 12; packs per day: 1; Cigarettes Per Day: 20; Second Hand Exposure: No; Hx Alcohol Use: Yes Alcohol type: beer Hx Substance Use: No Preferred Language: Persian Visual Impairment: No Limitations Hearing Ability: Normal marital status: Current Living Situation: Spouse current occupational status: employed current occupation: [employer] Feels Safe at Home: Yes caffeine: Yes Dental Care, Regularly: Yes Physical Activity Frequency: Daily Seatbelt Use: sometimes Sunscreen Use: No Review of Systems Review of Systems: see hpi Physical Exam Constitutional: WD/WN, vitals as above + obese Eyes: PERRL, conjunctivae normal, anicteric sclerae ENMT: external ear and nose normal, oropharynx normal Neck: trachea midline, no thyromegaly Respiratory: normal respiratory effort, lungs clear to auscultation Cardiovascular: RRR, no murmur, no edema Chest (Breasts): Chest: normal inspection of chest Additional Comments: no pain on palpation Gastrointestinal (Abdomen): normal bowel sounds, soft, nontender, no hepatosplenomegaly Skin: no rashes, warm and dry Psychiatric: A+Ox3, euthymic affect Results & Data Results & Data ([facility]) Vital Signs (Past 12 Hours) Vital Signs Temp Pulse Resp BP Pulse Ox O2 Del Method 11/08/22 01:40 76 96 11/08/22 01:40 179/104 H 11/08/22 01:30 68 96 11/08/22 01:20 68 20 96 11/08/22 01:10 66 23 97 11/08/22 01:06 75 22 95 11/08/22 00:50 72 0 L 95 11/08/22 00:40 74 9 L 95 02/12/23 00:30 80 24 95 11/08/22 00:20 81 17 96 11/08/22 00:11 86 18 98 11/08/22 00:08 98 Room Air 11/08/22 00:09 97 Room Air 11/08/22 00:02 36.4 C L 96 H 18 215/116 H 100 Room Air 11/08/22 00:02 Room Air Supervising Physician Co-Signing Physician Notes Patient seen and examined, chart reviewed, case discussed with Dr. Eduardo and I agree with the assessment plan as documented above. In brief, patient is a 57-year-old female with history of factor V Leiden mutation with prior VTE on Coumadin anticoagulation, elevated blood pressure reading without formal diagnosis of hypertension, active tobacco use prediabetes presenting with episode of chest pain. Troponin = negative, EKG with possibly some ST deviation present while patient was experiencing pain. Now resolved. Exam she is afebrile, hypertensive otherwise hemodynamically stable. No acute distress no ongoing chest pain Lungs CTA Abdomen soft, nontender, nondistended Extremities warm, well-perfused Labs and images reviewed. CTA per stat rad negative for PE Assessment/plan 57-year-old female presenting with chest discomfort We will trend troponins Monitor blood pressure Administer additional Coumadin. Patient is subtherapeutic. Repeat INR in the morning Remainder of plan as above Resident Activity Tracking Resident Involvement: Resident Care Provided Care Provided: Adult Hospital Medicine (1) Chest pain Chest pain type: unspecified Qualified Code(s): R07.9 - Chest pain, unspecified
[2022-11-08] MEDS ORDERED: ACETAMINOPHEN 325 MG TAB PO PRN (02:50)
--- NOTE | 2022-11-08 03:08 | Billing Data ---
Date of Service November 08, 2022 Coding Level of Care Code 85584 INT INP/OBS CARE
[2022-11-08] MEDS ORDERED: WARFARIN SOD 3 MG TAB PO ONE (05:00)
[2022-11-08 06:42] LABS: INR 1.6 (0.9-1.1); Prothrombin Time 17.1 Seconds (9.0-12.0)
--- NOTE | 2022-11-08 06:56 | XRay Report ---
XR chest 1V portable HISTORY: Chest pain, nonspecific COMPARISON: Chest 08/29/2021. FINDINGS: The lungs are clear. Cardiac silhouette is normal in size. No pleural effusions. No pneumot horax. Cervical spinal fusion hardware is noted. IMPRESSION: No acute process. ACT 112: Negative or not required by law. Electronically signed by: Toro Borrego M.D. 11/08/2022 6:54 AM
--- NOTE | 2022-11-08 07:40 | Discharge Summary ---
Date of Service November 08, 2022 Admission HPI Per Admitting Provider 57yo Female with PMH prediabetes, factor V leiden on warfarin, depression, chronic pain here for concern chest pain. Patient states at 5pm today she noticed some discomfort in her left chest, noted point tenderness that lasted for a minute before resolving on its own. She continued to have 2 more episodes of chest pain, felt it was closer to a burning sensation and was different from her previous pulmonary embolisms so came to the ED. She continued to have episodes of chest pain in the ED, and was given nitroglycerin and aspirin. In ED she had 1x normal troponin, 1x NSR ekg and 1x ekg with nonspecific ST abn. Patient states nothing out of the ordinary happened today, is unable to trigger the pain. Patient denies any fever chills nausea vomiting abd pain D/C rashes. Earlier this week she had a UTI with fever nausea that resolved by wednesday treated with abx, she states the abx usage may have interfered with her warfarin. Patient states she does not have HTN, follows PCP regularly has normal BP in office, states BP tends to be higher in hospital. Patient works in skilled nursing maintenance, walks and lifts items for job. She has a 40pk year smoking history, drinks alcohol rarely once every few months. Has extensive FH CO, mom age 50's, 2 brothers ages 30's and 50's. Patient describes regular diet, irregular sleeping patterns wakes frequently for urination given that she drinks a lot of water in evening for history kidney stones. Admission Exam Per Admitting Provider Constitutional: WD/WN, vitals as above + obese Eyes: PERRL, conjunctivae normal, anicteric sclerae ENMT: external ear and nose normal, oropharynx normal Neck: trachea midline, no thyromegaly Respiratory: normal respiratory effort, lungs clear to auscultation Cardiovascular: RRR, no murmur, no edema Chest (Breasts): Chest: normal inspection of chest Additional Comments: no pain on palpation Gastrointestinal (Abdomen): normal bowel sounds, soft, nontender, no hepatosplenomegaly Skin: no rashes, warm and dry Psychiatric: A+Ox3, euthymic affect Principal Diagnosis Chest Pain Discharge Exam General: A&Ox3. NAD. Cooperative. HEENT: Atraumatic, normocephalic. Pulm: CTAB A&P. -wheezes, -rales, -rhonchi. Symmetrical chest rise. No increase work of breathing. No respiratory distress. Cardiac: RRR, -mrg. Radial pulses intact and symmetrical. No LE edema. Chest: no tenderness to palpation of chest wall Abdominal: soft, non-tender, non-distended, BS x 4 Skin: warm, dry, no rash Discharge Data Allergies Allergy/AdvReac Type Severity Reaction Status Date / Time ciprofloxacin [From Cipro] AdvReac Unknown CONTRAINDICATED Verified 11/08/22 00:28 WITH BLOOD THINNERS Consultations 11/08/22 01:42 ED Decision to Admit Stat Ordered Studies 11/08/22 00:08 CT angio chest PE protocol Urgent Hospital Course (1) Chest pain: Viky Wise is a 57yo female with PMHx significant for Factor V Leiden with h/o PE (on Warfarin), tobacco use disorder (40 pack year history, currently 1ppd), Prediabetes, Depression, and chronic lower extremity pain (post-surgical) who was admitted to [facility] on 11/08 for chest pain. Chest Pain Several episodes of burning chest pain across chest wall that resolved after several minutes without intervention, and without other associated symptoms. Although initially EKG showed NSR with ?ST abnormalities, repeat EKG was normal and otherwise work-up unremarkable with negative hsTroponin x3, CTA chest without PE/pneumothorax, TTE unremarkable and labs/CXR otherwise largely unremarkable. - BP was 215/166 on admission - ?chest pain 2/2 to HTN urgency - pain did resolve after Nitro SL x1, and she was also given ASA 324mg PO x1 - was also given NSS 1L bolus - no chest pain throughout hospitalization - fasting lipid profile with LDL 86, TG 42, cholesterol 127 - A1c drawn and pending - Echo done showed normal EF and no wall motion abnormality. - patient was counseled on cardiac stress test but declined - consider as outpatient to more definitively rule out significant CAD Elevated Blood Pressure - BP noted on admit 215/116 - received nitroglycerin, aspirin, NSS bolus, Magnesium in ED, BP recheck 159/87 - per patient no one has mentioned HTN to her at PCP office, however BP from PCP visits have systolic 140-160's - chronic LE pain may be contributing - consider addition of PEEWEE-I vs ARB as outpatient - defer to PCP Factor V Leiden; H/o PE On chronic Warfarin 10mg PO daily. INR 1.7 on admission - was given extra 3mg dose. - INR remains low at 1.6 this morning - recommend repeat within 2-3 days as outpatient - continue Warfarin 10mg daily T2DM A1c 6.6 today - new diagnosis. Was previously prediabetes. On Metformin 500mg PO BID at home. - hold Metformin while hospitalized - resume on discharge - counseled on dietary modifications Hypomagnesemia, resolved Mg 1.6 on admit - repleted with Mag sulfate 2gm IV in ED. Subsequently improved to 2.1. Nephrolithiasis Bilateral, with mild left hydronephrosis. Patient has known history of this. No flank pain or CVA tenderness on exam. No N/V. Asymptomatic. - continue home Flomax - counseled on adequate PO intake (2) Subtherapeutic international normalized ratio (INR): (3) Hypomagnesemia: (4) Prediabetes: (5) Heterozygous factor V Leiden mutation: (6) Arthralgia: Total Time Total Time Spent Total Time Spent (In Minutes): 30 minutes Discharge Plan Discharge Items Patient Disposition: Home - Self-Care Reason For Visit: CHEST PAIN Discharge Diagnosis: chest pain Condition on Discharge: Good Activity: Per Instructions section Non-emergency contact: Primary Care Provider Call non-emergency contact if: you have any medication questions, your symptoms worsen and your pain is concerning for you Follow-up/Referrals: Layne Martell CRNP [Primary Care Provider] - 11/16/22 10:30 am () Diet: Regular Addtl Attending Provider Instructions: You were admitted to [facility] on 11/08 for chest pain. In context of your previous pulmonary embolism, we checked a CT scan of your chest which thankfully was normal. You also had several EKGs, blood tests, and a heart US (Echocardiogram) that were all normal. Thankfully your chest pain resolved thorughout the hospitalization. Your blood pressure was significantly elevated when you came to the hospital. Thankfully it came down without medications, but we recommend that you continue to monitor your blood pressure closely after discharge, as it may have caused the chest pain. Lastly, your INR was low at 1.7 on admission, so we gave you an extra dose of Warfarin 3mg. You will be discharged on 11/08: 1. Please monitor your blood pressure daily until your next PCP appointment. 2. Please follow up with your PCP. They may discuss the possibility of a stress test with you. 3. Please continue to take Warfarin 10mg daily and follow up with your coagulation clinic and/or PCP for close monitoring of INR within the next 2-3 days, to ensure that it returns to above 2. 4. Please keep yourself well hydrated, as we found kidney stones in both of your kidneys on imaging, and your left kidney did have some mild back-up of fluid from the stone. 5. Please continue to take your other medications as scheduled We hope you continue to feel better. It was a pleasure to help provide your care while you were hospitalized. Pending Studies at Discharge: Yes Stand-Alone Forms: My [facility] GoSpotCheck, Smoking Cessation Medications and DC Order Prescriptions: Continued metformin 500 mg tablet 500 mg PO BID Qty: 60 11RF amitriptyline 75 mg tablet 75 mg PO HS Qty: 90 3RF warfarin 5 mg tablet 10 mg PO HS Qty: 180 3RF Protocol: Dose Management Condition: Wednesday Dose/Route: 10 mg Instruction: 2 x 5 mg tablets Condition: Wednesday Dose/Route: 10 mg Instruction: 2 x 5 mg tablets Condition: Wednesday Dose/Route: 10 mg Instruction: 2 x 5 mg tablets Condition: Wednesday Dose/Route: 10 mg Instruction: 2 x 5 mg tablets Condition: Dose/Route: 10 mg Instruction: 2 x 5 mg tablets Condition: Wednesday Dose/Route: 10 mg Instruction: 2 x 5 mg tablets Condition: Wednesday Dose/Route: 10 mg Instruction: 2 x 5 mg tablets Protocol Text: Adjustment Start Date: Wednesday10/21/22 INR Value: 2.8 INR Date: 10/15/22 Recheck Date: 11/20/22 Rx Instructions: PER ANTICOAG. nitrofurantoin monohyd/m-cryst [Macrobid] 100 mg capsule 100 mg PO Q12H 7 Days Qty: 14 0RF Rx Instructions: must administer with a meal/food multivitamin Tablet 1 tab PO HS cholecalciferol (vitamin D3) [Vitamin D3] 1,000 unit Capsule 1,000 unit PO HS tamsulosin [Flomax] 0.4 mg capsule 0.4 mg PO HS Discharge Orders: Discharge Order (Routine); Ordered 11/08/22 Ordered By: Randal Davila Admission Data Admit Date/Time: 11/08/22 02:51 Attending Provider: Shantel Green Admit Provider: Izabela Eduardo Primary Care Provider: Layne Martell Other Providers: Chanelle Alves Supervising Physician Co-Signing Physician Notes Resident Physician Supervision Note: I independently interviewed and examined the patient and verified the fair history and physical, reviewed labs and image studies and agree with resident findings and care plan. Resident Activity Tracking Resident Involvement: Resident Care Provided Care Provided: Adult [facility]
--- NOTE | 2022-11-08 07:45 | CT Scan Report ---
CHEST CTA for PULMONARY ARTERIES CT DOSE: 584.53 mGy.cm HISTORY: Atypical Chest Pain, eval for PE TECHNIQUE: Multiaxial CT images of the chest were performed following the intravenous administration of contrast to evaluate the pulmonary arteries. Maximal intensity projection images were also obtaine d. A dose lowering technique was utilized adhering to the principles of ALARA. COMPARISON STUDY: Chest CTA 03/14/2015. FINDINGS: Limited views of the upper abdomen demonstrate a normal liver and spleen. Low-density bilat eral adrenal gland nodules favor benign adenomas. The largest on the left measures 2.2 cm. There is m ild fullness/hydronephrosis within the partially visualized left kidney. There is a punctate stone wi thin the upper pole of the left kidney. The thyroid gland enhances normally. No mediastinal or hilar lymphadenopathy. No pleural or pericardial effusions. The heart is normal in size. Normal caliber eso phagus. No evidence for an aortic dissection. No filling defects within the pulmonary arteries to sug gest a pulmonary embolus. Cervical spinal fusion hardware is partially visualized. No pneumothorax. T he central airways are patent. Mild emphysema. Mild dependent changes seen within the lung bases. No focal lung consolidations to suggest a pneumonia. A few scattered subpleural nodules with the largest in the base the right lower lobe measuring 6 mm. These are not significantly changed compared to the prior chest CT and are therefore considered to be benign given the greater than 2 year stability. No new pulmonary nodules identified. IMPRESSION: 1. No evidence for a pulmonary embolus. 2. Mild emphysema. 3. Stable pulmonary nodules. These are likely benign given the greater than 2 year stability. 4. There is mild fullness/hydronephrosis within the partially visualized left kidney. There is a punc whiteside stone within the upper pole of the left kidney. Consider follow-up renal ultrasound for further evaluation. ACT 112: Negative or not required by law. Electronically signed by: Toro Borrego M.D. 11/08/2022 7:44 AM
[2022-11-08 08:19] LABS: Chol HDL Ratio 3.8 (0-5)
[2022-11-08 08:25] LABS: Troponin I High Sensitivity 3.1 pg/ml (0-14)
--- NOTE | 2022-11-08 09:12 | Ultrasound Report ---
RENAL ULTRASOUND CLINICAL HISTORY: left hydronephrosis w/ calculus COMPARISON STUDY: CT of the abdomen and pelvis August 08, 2021. TECHNIQUE: Sonography of the kidneys and the urinary bladder was performed. FINDINGS: Hepatic steatosis is incidentally noted. The right kidney measures 14 cm in maximal dimensi on and the left measures 12.1 cm. There is no right hydronephrosis. Multiple bilateral renal calculi are noted. Largest right-sided calculus measures 6 mm. Left renal calculi measure up to approximately 2 cm. There is mild left hydronephrosis. Both ureteral jets were visualized. IMPRESSION: 1. Bilateral nephrolithiasis. Mild left hydronephrosis. 2. Both ureteral jets identified. ACT 112: Negative or not required by law. Electronically signed by: Elian Geiger M.D. 11/08/2022 9:11 AM
[2022-11-08 10:03] LABS: Estimated Average Glucose 143 mg/dl; Hemoglobin A1C 6.6 % (4.5-5.6)
[2022-11-08 10:46] LABS: Magnesium 2.1 mg/dl (1.7-2.4)
--- NOTE | 2022-11-08 13:49 | XCELERA ---
[id number]
[2022-11-08] MEDS ORDERED: TAMSULOSIN HCL 0.4 MG CAP PO SCH (21:00)
[2022-11-08] MEDS ORDERED: CHOLECALCIFEROL 1,000 UNITS 25 MCG TAB PO SCH (21:00)
[2022-11-08] MEDS ORDERED: WARFARIN SOD 10 MG TAB PO SCH (21:00)
[2022-11-08] MEDS ORDERED: AMITRIPTYLINE HCL 25 MG TAB PO SCH (21:00)
--- NOTE | 2022-11-09 05:58 | Electrocardiogram Report ---
Test Reason : Blood Pressure : / mmHG Vent. Rate : 101 BPM Atrial Rate : 101 BPM P-R Int : 160 ms QRS Dur : 088 ms QT Int : 326 ms P-R-T Axes : 067 068 064 degrees QTc Int : 422 ms Sinus tachycardia Nonspecific ST abnormality Abnormal ECG When compared with ECG of 06-JUN-2020 16:47, No significant change Confirmed by Juanjo Rubio ([id number]) on 11/09/2022 5:58:29 AM Referred By: REFERRED SELF Confirmed By:Juanjo Rubio
--- NOTE | 2022-11-09 06:01 | Electrocardiogram Report ---
Test Reason : Blood Pressure : / mmHG Vent. Rate : 078 BPM Atrial Rate : 078 BPM P-R Int : 166 ms QRS Dur : 088 ms QT Int : 352 ms P-R-T Axes : 061 057 071 degrees QTc Int : 401 ms Poor data quality, interpretation may be adversely affected Normal sinus rhythm Normal ECG When compared with ECG of 08-NOV-2022 00:00, No significant change Confirmed by Juanjo Rubio ([id number]) on 11/09/2022 6:01:11 AM Referred By: REFERRED SELF Confirmed By:Juanjo Rubio
== END 2022-11-08 17:32 | disposition home or self-care (01) ==
LOC: 2W 23:54 → ED 23:54 → SUATTDRO 11-08 02:51 → 2W 11-08 03:55